=== PATIENT | male | born 1995 | race Caucasian/White ===

== ENCOUNTER → 2020-08-16 10:48 | Outpatient (CLI) | payer OTHER, MEDICAID, SELFPAY ==
--- NOTE | 2020-08-16 | DI.RAD.S_ITS ---
PROCEDURE: XR CERVICAL SPINE 4V OR 5V INDICATIONS: Cervicalgia/Pain in thoracic spine TECHNIQUE: 5 views of the cervical spine were acquired. COMPARISON: None. FINDINGS: Bones: No fractures or dislocations to the T1 level. No suspicious bony lesions. Oblique views demonstrate no significant neural foraminal narrowing. Soft tissues: Prevertebral soft tissues are normal in thickness. IMPRESSION: Loss of lordosis; otherwise normal C-spine. Dictated by: Mehran Villa [facility] Interpreted: Asha Rodriguez MD on 08/16/2020 at 11:15 Approved by: Asha Rodriguez M.D. on 08/16/2020 at 11:57
--- NOTE | 2020-08-16 | DI.RAD.S_ITS ---
PROCEDURE: XR THORACIC SPINE 2V INDICATIONS: Cervicalgia/Pain in thoracic spine TECHNIQUE: 3 views of the thoracic spine were acquired. COMPARISON: [facility], CR, XR CERVICAL SPINE 4V OR 5V, 08/16/2020, 10:53. FINDINGS: Bones: No fractures or dislocations. No suspicious bony lesions. 12 pairs of ribs are noted, and appear intact where visualized. Soft tissues: No paravertebral stripe thickening. IMPRESSION: Normal T-spine. Dictated by: Mehran Villa [facility] Interpreted: Asha Rodriguez MD on 08/16/2020 at 11:16 Approved by: Asha Rodriguez M.D. on 08/16/2020 at 11:57
== END ==
PROVIDERS: PCP Physician Assistant; Referring Provider Physician Assistant; Visit Provider Physician Assistant
DX: M54.2 Cervicalgia (principal); M54.6 Pain in thoracic spine
CPT/HCPCS: 72050; 72070

== ENCOUNTER 2020-08-29 13:11 | Emergency (ER) | payer OTHER, MEDICAID, SELFPAY ==
[2020-08-29 13:39] VITALS: BP 136/76; PULSE 98; RESP 22; TEMP 36.9; O2SAT 98
[2020-08-29 14:13] LABS: Add Manual Diff / Slide Review NO; Basophils Absolute Auto 100 /uL (0-100); Basophils Percent Auto 0.6 % (0-2); Eosinophils Absolute Auto 100 /uL (0-450); Eosinophils Percent Auto 1.6 % (2-4); Hematocrit 48.8 % (41-53); Hemoglobin 16.5 g/dL (13.5-17.5); Lymphocytes Absolute Auto 1700 /uL (1100-4500); Lymphocytes Percent Auto 21.3 % (25-40); Mean Corpuscular HGB Conc 33.8 % (30-36); Mean Corpuscular Hemoglobin 29.8 PG (26-34); Mean Corpuscular Volume 88.2 fL (80-100); Monocytes Absolute Auto 600 /uL (0-900); Monocytes Percent Auto 7.4 % (3-14); Neutrophils Absolute Auto 5700 /uL (1500-7000); Neutrophils Percent Auto 69.1 % (50-75); Platelet Count 334 X10^3/uL (150-400); Red Blood Cell Count 5.54 X10^6/uL (4.5-5.9); Red Cell Distribution Width 13.3 % (11.6-14.8); White Blood Cell Count 8.2 X10^3/uL (4.5-11.0)
[2020-08-29 14:28] LABS: Acetaminophen < 10 ug/mL (10-30); Alanine Aminotransferase 27 IU/L (<50); Albumin Globulin Ratio 1.5 (1.0-2.8); Alkaline Phosphatase 87 U/L (38-126); Aspartate Aminotransferase 27 IU/L (17-59); BUN Creatinine Ratio 18.6 (6-22); Bilirubin Total 0.5 mg/dL (0.2-1.3); Blood Urea Nitrogen 16 mg/dL (9-20); Calcium 9.5 mg/dL (8.4-10.2); Carbon Dioxide 26 mmol/L (22-32); Chloride 102 mmol/L (98-107); Estimated Glomerular Filt Rate > 60.0 mL/min (>60); Ethanol (ETOH) < 10 mg/dL; Globulin 3.3 g/dL (1.7-4.1); Glucose 108 mg/dL (70-100); HEMOLYSIS < 15 (0-50); Potassium 3.9 mmol/L (3.4-5.1); Salicylate < 1.0 mg/dL (<20); Sodium 139 mmol/L (137-145); Total Protein 8.3 g/dL (6.3-8.2)
--- NOTE | 2020-08-29 14:33 | ED_ITS ---
HPI - Psych <Jennifer Roberson DO - Last Filed: 08/30/20 16:08> General Chief Complaint: Psychiatric Symptoms Stated Complaint: Mental Crisis Time Seen by Provider: 08/29/20 13:49 Source: patient Mode of arrival: Ambulatory Limitations: no limitations History of Present Illness HPI Narrative: Patient is a 24-year-old male who presents with suicidal ideations and depression. He is expressing significant hopelessness. He was seen by a primary care provider and started on antidepressant 2 weeks ago but he feels things are just getting worse progressively fast. He has a plan of suicide but is not willing to share with me. He denies any drug or alcohol use. 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 He was living in [place] but now is living at home with his parents. He had a recent break-up with a girlfriend. He has a stat and mu ltiple other stressors. He is not asking to go to a mental health hospital the is asking for help. He says that he has called hotline used the text messaging services and for out of the 5 times the response to get the person is going off shift and requests he wait for the new person. He is frustrated with the system. MD complaint: suicidal ideation and feels depressed Related Data Allergies Allergy/AdvReac Type Severity Reaction Status Date / Time No Known Drug Allergies Allergy Verified 08/29/20 13:44 Review of Systems <Jennifer Roberson DO - Last Filed: 08/30/20 16:08> Review of Systems Narrative: GENERAL: Denies chills, fatigue, malaise, fever, sweats, travel HEENT: Denies sinus pain, ear pain, sore throat, difficulty swallowing, neck pain RESPIRATORY: Denies dyspnea, cough, wheezing, hemoptysis, sputum. CARDIOVASCULAR: Denies chest pain, palpitations, orthopnea, edema GASTROINTESTINAL: Denies nausea, vomiting, abdominal pain, diarrhea, constipation, melena. : Denies dysuria, frequency, incontinence, hematuria, urinary retention, flank pain. MUSCULOSKELETAL: Denies weakness, joint pain, or bony pain SKIN: No rash, no erythema, no pruritus NEUROLOGIC: Denies weakness, dizziness, headache, numbness, change in speech, confusion PSYCHIATRIC: See HPI 12 point review of systems is negative except for those stated above and HPI Patient History <Jennifer Roberson DO - Last Filed: 08/30/20 16:08> Medical History Depression Social History Smoking Status: Never smoker Smoking Status: Never smoker alcohol intake frequency: holidays/special occasions only Substance Use Type: does not use Exam <Jennifer Roberson DO - Last Filed: 08/30/20 16:08> Initial Vital Signs Initial Vital Signs: Vital Signs Temperature 98.4 F 08/29/20 13:39 Pulse Rate 98 H 08/29/20 13:39 Respiratory Rate 22 08/29/20 13:39 Blood Pressure 136/76 08/29/20 13:39 Pulse Oximetry 98 08/29/20 13:39 GENERAL: Alert young 24-year-old male and in no acute distress. HEENT: Head atraumatic,EOMI, pupils reactive, face symmetric, moist mucous membranes CARDIOVASCULAR: Regular rate and rhythm without murmurs, rubs or gallops. RESPIRATORY: Breath sounds equal bilaterally, no wheezes rales or rhonchi. EXTREMITIES: Normal range of motion, no clubbing or edema. Neurovascularly intact NEUROLOGICAL: Alert and oriented x4.Normal gait and speech. Cranial nerves II through XII grossly intact. SKIN: Warm, dry, no laceration, no petechiae, no rashes or lesions. Psych Appearance: grossly normal Mental Status: mental status grossly normal Speech and Movement: speech clear Attitude: cooperative Thought Process: normal Thought Content: normal <Joe Pathak DO - Last Filed: 08/30/20 04:38> Initial Vital Signs Initial Vital Signs: Vital Signs Temperature 98.4 F 08/29/20 13:39 Pulse Rate 98 H 08/29/20 13:39 Respiratory Rate 22 08/29/20 13:39 Blood Pressure 136/76 08/29/20 13:39 Pulse Oximetry 98 08/29/20 13:39 Course <Jennifer Roberson DO - Last Filed: 08/30/20 16:08> Orders Ordered: ED Orders 08/29/20 21:20 COVID19 -Nasal swab/Pre-Proc Stat Vital Signs Vital signs: Vital Signs - 8 hr 08/29/20 21:51 Pulse Rate 51 L Respiratory Rate 16 Blood Pressure 143/83 H Pulse Oximetry 96 <Joe Pathak, DO - Last Filed: 08/30/20 04:38> Course Course Narrative: Patient received in sign-out from Dr. Roberson. I performed an independent history and physical exam. The DCR has performed a detailed interview and feels the patient is appropriate for discharge, please see their note for details. The patient understands and agrees with the plan. He is able to contract for safety and has had return precautions given and questions answered to his apparent satisfaction Orders Ordered: ED Orders 08/29/20 21:20 COVID19 -Nasal swab/Pre-Proc Stat Vital Signs Vital signs: Vital Signs - 8 hr 08/29/20 21:51 Pulse Rate 51 L Respiratory Rate 16 Blood Pressure 143/83 H Pulse Oximetry 96 MDM - Psych <Jennifer Roberson, - Last Filed: 08/30/20 16:08> Lab Data Result diagrams: 08/29/20 14:03 08/29/20 14:03 Labs: Lab Results 08/29/20 08/29/20 08/29/20 Range/Units 14:03 14:03 14:03 WBC 8.2 (4.5-11.0) X10^3/uL RBC 5.54 (4.5-5.9) X10^6/uL Hgb 16.5 (13.5-17.5) g/dL Hct 48.8 (41-53) % MCV 88.2 (80-100) fL MCH 29.8 (26-34) PG MCHC 33.8 (30-36) % RDW 13.3 (11.6-14.8) % Plt Count 334 (150-400) X10^3/uL Neut % (Auto) 69.1 (50-75) % Lymph % (Auto) 21.3 L (25-40) % Sharkey % (Auto) 7.4 (3-14) % Eos % (Auto) 1.6 L (2-4) % Baso % (Auto) 0.6 (0-2) % Neut # (Auto) 5700 (9911-3499) /uL Lymph # (Auto) 1700 (3895-0701) /uL Sharkey # (Auto) 600 (0-900) /uL Eos # (Auto) 100 (0-450) /uL Baso # (Auto) 100 (0-100) /uL Sodium 139 (137-145) mmol/L Potassium 3.9 (3.4-5.1) mmol/L Chloride 102 (98-107) mmol/L Carbon Dioxide 26 (22-32) mmol/L BUN 16 (9-20) mg/dL Creatinine 0.86 (0.66-1.25) mg/dL Estimated GFR > 60.0 (>60) mL/min BUN/Creatinine Ratio 18.6 (6-22) Glucose 108 H (70-100) mg/dL Calcium 9.5 (8.4-10.2) mg/dL Total Bilirubin 0.5 (0.2-1.3) mg/dL AST 27 (17-59) IU/L ALT 27 (<50) IU/L Alkaline Phosphatase 87 (38-126) U/L Total Protein 8.3 H (6.3-8.2) g/dL Albumin 5.0 (3.5-5.0) g/dL Globulin 3.3 (1.7-4.1) g/dL Albumin/Globulin Ratio 1.5 (1.0-2.8) TSH 1.42 (0.47-4.68) uIU/mL Free T4 1.11 (0.78-2.19) ng/dL Salicylates < 1.0 (<20) mg/dL U Opiates 300ng/mL cut (Negative) Ur Oxycodone Screen (Negative) Urine Methadone Screen (Negative) Acetaminophen < 10 L (10-30) ug/mL Ur Barbiturates Screen (Negative) U Tricyclic Antidepress (Negative) Ur Phencyclidine Scrn (Negative) Ur Amphetamines Screen (Negative) U Methamphetamines Scrn (Negative) Ur MDMA Scrn (Ecstasy) (Negative) U Benzodiazepines Scrn (Negative) Urine Cocaine Screen (Negative) U Marijuana (THC) Screen (Negative) Ethyl Alcohol < 10 ( - 10) mg/dL SARS-CoV-2 (PCR) (Negative) 08/29/20 08/29/20 Range/Units 14:42 21:20 WBC (4.5-11.0) X10^3/uL RBC (4.5-5.9) X10^6/uL Hgb (13.5-17.5) g/dL Hct (41-53) % MCV (80-100) fL MCH (26-34) PG MCHC (30-36) % RDW (11.6-14.8) % Plt Count (150-400) X10^3/uL Neut % (Auto) (50-75) % Lymph % (Auto) (25-40) % Sharkey % (Auto) (3-14) % Eos % (Auto) (2-4) % Baso % (Auto) (0-2) % Neut # (Auto) (8015-4426) /uL Lymph # (Auto) (1050-4070) /uL Sharkey # (Auto) (0-900) /uL Eos # (Auto) (0-450) /uL Baso # (Auto) (0-100) /uL Sodium (137-145) mmol/L Potassium (3.4-5.1) mmol/L Chloride (98-107) mmol/L Carbon Dioxide (22-32) mmol/L BUN (9-20) mg/dL Creatinine (0.66-1.25) mg/dL Estimated GFR (>60) mL/min BUN/Creatinine Ratio (6-22) Glucose (70-100) mg/dL Calcium (8.4-10.2) mg/dL Total Bilirubin (0.2-1.3) mg/dL AST (17-59) IU/L ALT (<50) IU/L Alkaline Phosphatase (38-126) U/L Total Protein (6.3-8.2) g/dL Albumin (3.5-5.0) g/dL Globulin (1.7-4.1) g/dL Albumin/Globulin Ratio (1.0-2.8) TSH (0.47-4.68) uIU/mL Free T4 (0.78-2.19) ng/dL Salicylates (<20) mg/dL U Opiates 300ng/mL cut Negative (Negative) Ur Oxycodone Screen Negative (Negative) Urine Methadone Screen Negative (Negative) Acetaminophen (10-30) ug/mL Ur Barbiturates Screen Negative (Negative) U Tricyclic Antidepress Negative (Negative) Ur Phencyclidine Scrn Negative (Negative) Ur Amphetamines Screen Negative (Negative) U Methamphetamines Scrn Negative (Negative) Ur MDMA Scrn (Ecstasy) Negative (Negative) U Benzodiazepines Scrn Negative (Negative) Urine Cocaine Screen Negative (Negative) U Marijuana (THC) Screen Negative (Negative) Ethyl Alcohol ( - 10) mg/dL SARS-CoV-2 (PCR) Negative (Negative) Urine Dip Bedside Urine Glucose Negative Bedside Urine Bilirubin - Negative Bedside Urine Ketone - Negative Urine Specific [place] 1.030 Bedside Urine Occult Blood - Negative Bedside Urine pH 6.0 Bedside Urine Protein - Negative Bedside Urine Urobilinogen - Negative Bedside Urine Nitrite - Negative Bedside Urine Leukocytes - Negative Esterase MDM Narrative Medical decision making narrative: The patient gave director of social media marketing more information on his plan. He would is suck gas out of an N55. At this time social work thinks DCR needs to be involved. Patient signed out to Dr. Pathak awaiting DCR. <Joe Pathak, - Last Filed: 08/30/20 04:38> Lab Data Labs: Lab Results 08/29/20 08/29/20 08/29/20 Range/Units 14:03 14:03 14:03 WBC 8.2 (4.5-11.0) X10^3/uL RBC 5.54 (4.5-5.9) X10^6/uL Hgb 16.5 (13.5-17.5) g/dL Hct 48.8 (41-53) % MCV 88.2 (80-100) fL MCH 29.8 (26-34) PG MCHC 33.8 (30-36) % RDW 13.3 (11.6-14.8) % Plt Count 334 (150-400) X10^3/uL Neut % (Auto) 69.1 (50-75) % Lymph % (Auto) 21.3 L (25-40) % Sharkey % (Auto) 7.4 (3-14) % Eos % (Auto) 1.6 L (2-4) % Baso % (Auto) 0.6 (0-2) % Neut # (Auto) 5700 (9930-1900) /uL Lymph # (Auto) 1700 (4130-3927) /uL Sharkey # (Auto) 600 (0-900) /uL Eos # (Auto) 100 (0-450) /uL Baso # (Auto) 100 (0-100) /uL Sodium 139 (137-145) mmol/L Potassium 3.9 (3.4-5.1) mmol/L Chloride 102 (98-107) mmol/L Carbon Dioxide 26 (22-32) mmol/L BUN 16 (9-20) mg/dL Creatinine 0.86 (0.66-1.25) mg/dL Estimated GFR > 60.0 (>60) mL/min BUN/Creatinine Ratio 18.6 (6-22) Glucose 108 H (70-100) mg/dL Calcium 9.5 (8.4-10.2) mg/dL Total Bilirubin 0.5 (0.2-1.3) mg/dL AST 27 (17-59) IU/L ALT 27 (<50) IU/L Alkaline Phosphatase 87 (38-126) U/L Total Protein 8.3 H (6.3-8.2) g/dL Albumin 5.0 (3.5-5.0) g/dL Globulin 3.3 (1.7-4.1) g/dL Albumin/Globulin Ratio 1.5 (1.0-2.8) TSH 1.42 (0.47-4.68) uIU/mL Free T4 1.11 (0.78-2.19) ng/dL Salicylates < 1.0 (<20) mg/dL U Opiates 300ng/mL cut (Negative) Ur Oxycodone Screen (Negative) Urine Methadone Screen (Negative) Acetaminophen < 10 L (10-30) ug/mL Ur Barbiturates Screen (Negative) U Tricyclic Antidepress (Negative) Ur Phencyclidine Scrn (Negative) Ur Amphetamines Screen (Negative) U Methamphetamines Scrn (Negative) Ur MDMA Scrn (Ecstasy) (Negative) U Benzodiazepines Scrn (Negative) Urine Cocaine Screen (Negative) U Marijuana (THC) Screen (Negative) Ethyl Alcohol < 10 ( - 10) mg/dL SARS-CoV-2 (PCR) (Negative) 08/29/20 08/29/20 Range/Units 14:42 21:20 WBC (4.5-11.0) X10^3/uL RBC (4.5-5.9) X10^6/uL Hgb (13.5-17.5) g/dL Hct (41-53) % MCV (80-100) fL MCH (26-34) PG MCHC (30-36) % RDW (11.6-14.8) % Plt Count (150-400) X10^3/uL Neut % (Auto) (50-75) % Lymph % (Auto) (25-40) % Sharkey % (Auto) (3-14) % Eos % (Auto) (2-4) % Baso % (Auto) (0-2) % Neut # (Auto) (7910-2987) /uL Lymph # (Auto) (6102-6665) /uL Sharkey # (Auto) (0-900) /uL Eos # (Auto) (0-450) /uL Baso # (Auto) (0-100) /uL Sodium (137-145) mmol/L Potassium (3.4-5.1) mmol/L Chloride (98-107) mmol/L Carbon Dioxide (22-32) mmol/L BUN (9-20) mg/dL Creatinine (0.66-1.25) mg/dL Estimated GFR (>60) mL/min BUN/Creatinine Ratio (6-22) Glucose (70-100) mg/dL Calcium (8.4-10.2) mg/dL Total Bilirubin (0.2-1.3) mg/dL AST (17-59) IU/L ALT (<50) IU/L Alkaline Phosphatase (38-126) U/L Total Protein (6.3-8.2) g/dL Albumin (3.5-5.0) g/dL Globulin (1.7-4.1) g/dL Albumin/Globulin Ratio (1.0-2.8) TSH (0.47-4.68) uIU/mL Free T4 (0.78-2.19) ng/dL Salicylates (<20) mg/dL U Opiates 300ng/mL cut Negative (Negative) Ur Oxycodone Screen Negative (Negative) Urine Methadone Screen Negative (Negative) Acetaminophen (10-30) ug/mL Ur Barbiturates Screen Negative (Negative) U Tricyclic Antidepress Negative (Negative) Ur Phencyclidine Scrn Negative (Negative) Ur Amphetamines Screen Negative (Negative) U Methamphetamines Scrn Negative (Negative) Ur MDMA Scrn (Ecstasy) Negative (Negative) U Benzodiazepines Scrn Negative (Negative) Urine Cocaine Screen Negative (Negative) U Marijuana (THC) Screen Negative (Negative) Ethyl Alcohol ( - 10) mg/dL SARS-CoV-2 (PCR) Negative (Negative) Urine Dip Bedside Urine Glucose Negative Bedside Urine Bilirubin - Negative Bedside Urine Ketone - Negative Urine Specific [place] 1.030 Bedside Urine Occult Blood - Negative Bedside Urine pH 6.0 Bedside Urine Protein - Negative Bedside Urine Urobilinogen - Negative Bedside Urine Nitrite - Negative Bedside Urine Leukocytes - Negative Esterase Discharge Plan Departure Patient Disposition: Home Clinical Impression: Depression Qualifiers: Depression Type: major depressive disorder Major depression recurrence: single episode Active/Remission status: currently active Major depression episode severity: moderate Qualified Code(s): F32.1 - Major depressive disorder, single episode, moderate Instructions: DI for Suicidal Ideation-Adult Activity Restrictions/Additional Instructions: *You have been diagnosed with [suicidal ideation. Able to contract for safety] *What to do: *Follow up with your primary care provider in 2-3 days, call for an appointment. Let them know you were seen in the Emergency Department and that we ask that you be seen in follow up *Return to ER if you should have any new, worsening or concerning symptoms *If you feel that you are entering into mental health crisis you have multiple options 1. Return to the ER immediately 2. Call the Crisis Line at [phone] 3. Send an anonymous text by sending the word Hello to [phone] 4. Navigate your web browser to [employer] to engage in anonymous chat with a mental health worker Referrals: [facility] [Outside] Danelle Montenegro PA-C [Primary Care Provider] -
[2020-08-29 14:52] LABS: Ur Creatinine Normal (Normal); Ur Specific Gravity Normal (Normal); Urine pH Normal (Normal)
[2020-08-29 14:53] LABS: UR Morphine/Opiate cutoff 300 Negative (Negative); Urine Amphetamines Negative (Negative); Urine Barbiturates Negative (Negative); Urine Benzodiazepines Negative (Negative); Urine Cocaine Negative (Negative); Urine MDMA Negative (Negative); Urine Methadone Negative (Negative); Urine Methamphetamines Negative (Negative); Urine Oxycodone Negative (Negative); Urine Phencyclidine Negative (Negative); Urine Tetrahydrocannabinol Negative (Negative); Urine Tricyclic Antidepressant Negative (Negative)
[2020-08-29 14:53] LABS: Free T4, Direct Thyroxine 1.11 ng/dL (0.78-2.19)
[2020-08-29 15:07] LABS: Thyroid Stimulating Hormone 1.42 uIU/mL (0.47-4.68)
--- NOTE | 2020-08-29 18:13 | CM.SWNOTE ---
COMMUNITY OUTREACH COORDINATOR note Following assessment, COMMUNITY OUTREACH COORDINATOR obtains signature on attestation form and faxes form to [facility]. COMMUNITY OUTREACH COORDINATOR then calls [facility] and requests DCR dispatch. [facility] informs COMMUNITY OUTREACH COORDINATOR that DCR Kayy will be contacted. This call occurred at 1814 08/29. BANG Thomas
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
[2020-08-29 19:00] VITALS: BP 128/76; PULSE 84; RESP 20; TEMP 36.6; O2SAT 97
--- NOTE | 2020-08-29 20:00 | PC.NURSE ---
Patients door is partially closed but He is within sight. He is on a ipad video conference call with a doctor.
[2020-08-29 21:37] LABS: COVID19 -Nasal RAPID Negative (Negative)
[2020-08-29 21:51] VITALS: BP 143/83; PULSE 51; RESP 16; O2SAT 96
== END 2020-08-29 21:55 | disposition home or self-care (01) ==
PROVIDERS: Emergency Medicine; Emergency Provider Emergency Medicine; PCP Physician Assistant
DX: R45.851 Suicidal ideations (principal); F32.1 Major depressive disorder, single episode, moderate; Z20.822 Contact with and (suspected) exposure to COVID-19
CPT/HCPCS: 36415; 80053; 80305; 80320; 80329; 81003; 84439; 84443; 85025; 87635; 99284; C9803; G0480

== ENCOUNTER 2022-05-03 17:08 | Emergency (ER) | payer OTHER, MEDICAID, SELFPAY ==
[2022-05-03 17:14] VITALS: BP 142/98; PULSE 72; RESP 16; TEMP 36.9; O2SAT 99; BMI 25.4
--- NOTE | 2022-05-03 17:42 | ED.HA ---
HPI - Headache General Chief Complaint: Headache Stated Complaint: severe pain left side of face,dizzy,numbness Time Seen by Provider: 05/03/22 17:26 Source: patient Mode of arrival: Ambulatory History of Present Illness HPI Narrative: Patient is a 26-year-old otherwise healthy male who is here for evaluation of approximately 5 days of increasing pain and swelling to the right side of his neck and behind his right ear and up the back his head. He denies any problems swallowing or breathing. No ear pain. No sore throat. No dental pain. Does have a history of sinusitis but is not currently on any treatment for this. No skin rashes. Has been taking ibuprofen without any improvement. No fevers. No pain with opening and closing his mouth. Related Data Previous Rx's Medication Instructions Recorded amoxicillin 875 mg-potassium 1 tab PO Q12H 10 days #20 tabs 05/03/22 clavulanate 125 mg tablet Allergies Allergy/AdvReac Type Severity Reaction Status Date / Time No Known Drug Allergies Allergy Verified 08/29/20 13:44 Review of Systems Constitutional Constitutional: Reports system reviewed and no additional complaints, except as documented ENT Ears, Nose, Mouth, and Throat: Reports system reviewed and no additional complaints, except as documented Respiratory Respiratory: Reports system reviewed and no additional complaints, except as documented Integumentary/Breasts Skin/Breast: Reports system reviewed and no additional complaints, except as documented Neurologic Neurologic: Reports system reviewed and no additional complaints, except as documented Hematologic/Lymphatic On Anticoagulants: No Patient History Medical History Depression Social History Smoking Status: Never smoker Smoking Status: Never smoker alcohol intake frequency: holidays/special occasions only Substance Use Type: does not use Exam Initial Vital Signs Initial Vital Signs: Vital Signs Temperature 98.4 F 05/03/22 17:14 Pulse Rate 72 05/03/22 17:14 Respiratory Rate 16 05/03/22 17:14 Blood Pressure 142/98 H 05/03/22 17:14 Pulse Oximetry 99 05/03/22 17:14 Oxygen Delivery Method 05/03/22 17:14 Const General: cooperative, comfortable and No ill appearing HENMT Head: normal to inspection Ears: TM's normal bilaterally, EAC's normal and mastoids normal Nose: external nose normal Teeth and gingiva: dentition normal Throat: posterior oropharynx normal Neck Thyroid: thyroid normal Lymphatic: lymphadenopathy Resp Effort & Inspection: normal respiratory effort Auscultation: clear to auscultation bilaterally Skin General: no rashes or lesions noted Neuro General: patient alert, patient awake and moves all extremities Extrem General: normal to inspection and capillary refill normal Course Orders Ordered: Discontinued Medications Tramadol HCl (Tramadol 50 Mg Prepack) 1 bottle MISC SEEINSTR ONE Stop: 05/03/22 17:57 Vital Signs Vital signs: Vital Signs - 8 hr 05/03/22 17:14 Temperature 98.4 F Pulse Rate 72 Respiratory Rate 16 Blood Pressure 142/98 H Pulse Oximetry 99 Oxygen Delivery Method Room Air MDM - Headache MDM Narrative Medical decision making narrative: Patient does have right-sided posterior an anterior cervical lymphadenopathy and also occipital and pre and posterior auricular lymphadenopathy. There is no skin changes over the area that would make me concern for zoster. He is no other obvious infection but does have fairly significant right-sided lymphadenopathy. He has no testicular pain. No other skin rashes. Had a long discussion about lymphadenopathy and the lack of a definitive diagnosis. The plate OB is to give him a prescription for Augmentin which would cover most upper respiratory/head and neck infections however he is going to hold on this and if his symptoms worsen or do not improve over the next 24-48 hours he will start taking the antibiotic. He was given strict return precautions. Will hold on any radiologic studies for now. He expressed understanding and agreement. Discharge Plan Departure Patient Disposition: Home Clinical Impression: Lymphadenopathy Instructions: DI for Lymphadenopathy Activity Restrictions/Additional Instructions: You can continue to take Tylenol/ibuprofen for any discomfort. Recommend that you hold on the prescription for the antibiotics and only fill them if your symptoms do not improve or worsen over the next 24-36 hours. Return to the emergency department for any new or worsening symptoms. Prescriptions: New amoxicillin-pot clavulanate 875-125 mg tablet 1 tab PO Q12H 10 Days Qty: 20 0RF Referrals: Danelle Montenegro PA-C [Primary Care Provider] -
[2022-05-03 18:12] VITALS: BP 131/75; PULSE 69; O2SAT 97
[2022-05-03] MEDS: TRAMADOL 50 MG PREPACK 1 BOTTLE MISC (18:16)
== END 2022-05-03 18:18 | disposition home or self-care (01) ==
PROVIDERS: Emergency Provider Emergency Medicine; PCP Physician Assistant
DX: R59.1 Generalized enlarged lymph nodes (principal)
CPT/HCPCS: 99281

== ENCOUNTER 2024-08-28 18:55 | Emergency (ER) | payer OTHER, SELFPAY ==
[2024-08-28 19:07] VITALS: BP 148/80; PULSE 69; RESP 20; TEMP 36.6; O2SAT 97; BMI 25.5
[2024-08-28] MEDS: ACETAMINOPHEN 325 MG TABLET 975 MG PO (23:07)
--- NOTE | 2024-08-28 23:22 | DI.CT.S_ITS ---
PROCEDURE: CT HEAD/BRAIN WO CON INDICATIONS: occipital pain and visual change TECHNIQUE: Noncontrast 4.5 mm thick angled axial sections acquired from the foramen magnum to the vertex, with coronal and sagittal reformats. For radiation dose reduction, the following was used: automated exposure control, adjustment of mA and/or kV according to patient size. COMPARISON: None. FINDINGS: Image quality: Diagnostic. CSF spaces: Basal cisterns are patent. No extra-axial fluid collections. Ventricles are normal in size and shape. Brain: No midline shift. No intracranial masses or hemorrhage. Delgadillo-white matter interface is normal. Skull and face: Calvarium and visualized facial bones are intact, without suspicious lesions. No radiodense foreign body visualized in the globes. Sinuses: Visualized sinuses and mastoids are clear. IMPRESSION: No acute intracranial pathology. No radiodense foreign body visualized in the globes as clinically queried. Approved by: Yolanda Royal M.D.,Ph.D. on 08/29/2024 at 0:36
--- NOTE | 2024-08-28 23:23 | ED_ITS ---
HPI - Eye Problem General Chief complaint: Eye Problems Stated complaint: sent by [facility], neck and rt eye px Time Seen by Provider: 08/28/24 23:07 Source: patient Mode of arrival: Ambulatory History of Present Illness HPI Narrative: this is a 28-year-old male previously healthy referred from urgent care with a tender left occipital lesion and visual changes. Patient reports that about 5 days ago he had the onset of a dark spot in his vision in his right eye only. The eye is not painful, he does not have flashes or floaters does not wear contact lenses or corrective lenses and has been persistent since its onset. A day or 2 after that he noticed a tender spot on the back of his head. Thinks that he might have been bitten by a spider or something but does not recall any specific event. He has not had fevers says that he feels little numbness and tingling in his left arm with lifting. No recent chiropractic manipulation, no head injuries no fevers. Related Data Previous Rx's Medication Instructions Recorded cephalexin 500 mg capsule 500 mg PO QID #28 caps 08/29/24 Allergies Allergy/AdvReac Type Severity Reaction Status Date / Time No Known Drug Allergies Allergy Verified 08/28/24 18:15 Patient History Medical History Depression Social History Smoking Status: Never smoker Smoking Status: Never smoker alcohol intake frequency: holidays/special occasions only Exam Initial Vital Signs Initial Vital Signs: Vital Signs Temperature 98 F 08/28/24 19:07 Pulse Rate 69 08/28/24 19:07 Respiratory Rate 20 08/28/24 19:07 Blood Pressure 148/80 H 08/28/24 19:07 Pulse Oximetry 97 08/28/24 19:07 Oxygen Delivery Method Room Air 08/28/24 19:07 Const Other: Well-appearing HENMT HENMT Other: normocephalic and atraumatic. There is a tender lump in the left occiput not warm no visible erythema no other adenopathy appreciated. Eyes Other: Pupils are equal round and reactive extraocular movements are intact. Visual acuities 20/25 bilaterally Neck Other: no cervical adenopathy or carotid bru Resp Other: normal effort Cardio Other: regular rhythm rate no murmur rub or gallop Neuro Other: cranial nerves are intact speech is fluent no focal numbness or weakness Course Orders Ordered: ED Orders 08/28/24 23:22 CT head/brain wo con Stat 08/28/24 23:38 CBC Auto Diff [Complete Blood Count AUTO DIFF] Stat CMP [Comprehensive Metabolic Panel] Stat Discontinued Medications Acetaminophen (Acetaminophen 325 Mg Tablet) 975 mg PO NOW ONE Stop: 08/28/24 23:04 Last Admin: 08/28/24 23:07 Dose: 975 mg Documented By: Cephalexin HCl (Cephalexin 250 Mg Capsule) 500 mg PO NOW ONE Stop: 08/29/24 01:05 Last Admin: 08/29/24 01:08 Dose: 500 mg Documented By: Vital Signs Vital signs: Vital Signs - 8 hr 08/28/24 23:41 08/28/24 23:42 08/28/24 23:42 Pulse Rate 75 75 Blood Pressure 145/80 H Pulse Oximetry 100 100 Oxygen Delivery Method Room Air 08/29/24 00:00 08/29/24 00:00 08/29/24 00:30 Pulse Rate 68 Blood Pressure 131/90 122/75 Pulse Oximetry 100 Oxygen Delivery Method 08/29/24 00:30 08/29/24 01:00 Pulse Rate 59 L 64 Blood Pressure Pulse Oximetry 99 98 Oxygen Delivery Method MDM - Eye Problem Lab Data Lab results narrative: CBC with diff is unremarkable CMP is unremarkable 08/28/24 23:38 08/28/24 23:38 Labs: Lab Results 08/28/24 Range/Units 23:38 WBC 9.0 (4.5-11.0) X10^3/uL RBC 5.20 (4.5-5.9) X10^6/uL Hgb 15.7 (13.5-17.5) g/dL Hct 45.9 (41-53) % MCV 88.4 (80-100) fL MCH 30.1 (26-34) PG MCHC 34.1 (30-36) % RDW 13.2 (11.6-14.8) % Plt Count 345 (150-400) X10^3/uL Neut % (Auto) 56.1 (50-75) % Lymph % (Auto) 34.4 (25-40) % [place] % (Auto) 6.8 (3-14) % Eos % (Auto) 2.1 (2-4) % Baso % (Auto) 0.6 (0-2) % Neut # (Auto) 5000 (2418-4620) /uL Lymph # (Auto) 3100 (6508-2855) /uL [place] # (Auto) 600 (0-900) /uL Eos # (Auto) 200 (0-450) /uL Baso # (Auto) 100 (0-100) /uL Sodium 140 (137-145) mmol/L Potassium 3.6 (3.4-5.1) mmol/L Chloride 102 (98-107) mmol/L Carbon Dioxide 27 (22-32) mmol/L BUN 14 (9-20) mg/dL Creatinine 0.85 (0.66-1.25) mg/dL Estimated GFR > 60 (>60) mL/min BUN/Creatinine Ratio 16.5 (6-22) Glucose 108 H (70-100) mg/dL Calcium 9.6 (8.4-10.2) mg/dL Total Bilirubin 0.5 (0.2-1.3) mg/dL AST 27 (17-59) IU/L ALT 36 (<50) IU/L Alkaline Phosphatase 82 (38-126) U/L Total Protein 8.2 (6.3-8.2) g/dL Albumin 4.8 (3.5-5.0) g/dL Globulin 3.4 (1.7-4.1) g/dL Albumin/Globulin Ratio 1.4 (1.0-2.8) Imaging Data CT scan - head: My Impression: independent review of CT head, no acute findings, additionally, mastoids are clear Radiologist's Impression: radiology report was reviewed, no acute process MDM Narrative Medical decision making narrative: 28-year-old male presenting with 2 issues. The 1st of these is a visual change with a spot in the center of the vision of his right eye. This has been present for 4-5 days and is unchanged. Feel acuity is grossly intact without visual field cuts. I considered the possibility of stroke, MRI is not available when the patient was seen and CT is negative for stroke greater than 3 days after the onset of symptoms. Also has no other neurologic findings I think stroke is unlikely. I considered but do not suspect carotid or vertebral artery dissection. He also has a tender painful node in his upper neck / occipital region. He does not appear to be systemically ill, I considered but do not suspect sepsis he has not have an obvious portal for entry of infection however it is most likely that this is a reactive node, given its acute onset and essentially a solitary node I think it is probably not malignant. I put him on a course of Keflex for this. With respect to his eye issue, he would referred to Ophthalmology for further workup. [employer] forms completed, this does not seem to be related to a specific incident and I am not convinced that is related to his occupation Discharge Plan Departure Patient Disposition: Home Clinical Impression: Change in vision, Lymphadenopathy of head and neck Activity Restrictions/Additional Instructions: examination today is reassuring. I think it is safe to follow up with Ophthalmology in the coming week. [facility] office on Saturday morning and let them know you are in the emergency department. Additionally, use the provided information to set up a follow up appointment with the primary care provider. I have sent a prescription for Keflex to treat a possible infection involving the lymph nodes in the Back of your head. If you are have any further visual changes fevers severe headache vomiting or other acute symptoms return to the emergency department. You can use Tylenol and or ibuprofen at usual [id number] doses as needed for pain. Prescriptions: New cephalexin 500 mg capsule 500 mg PO QID Qty: 28 0RF Referrals: Baeta Kingston MD [Physician] - Miscellaneous,MD Veronique [Primary Care Provider] - Stand Alone Forms: Patient Portal/API/Survey
[2024-08-28 23:41] VITALS: PULSE 75; O2SAT 100
[2024-08-28 23:42] VITALS: BP 145/80; PULSE 75; O2SAT 100
[2024-08-28 23:50] LABS: Add Manual Diff / Slide Review NO; Basophils Absolute Auto 100 /uL (0-100); Basophils Percent Auto 0.6 % (0-2); Eosinophils Absolute Auto 200 /uL (0-450); Eosinophils Percent Auto 2.1 % (2-4); Hematocrit 45.9 % (41-53); Hemoglobin 15.7 g/dL (13.5-17.5); Lymphocytes Absolute Auto 3100 /uL (1100-4500); Lymphocytes Percent Auto 34.4 % (25-40); Mean Corpuscular HGB Conc 34.1 % (30-36); Mean Corpuscular Hemoglobin 30.1 PG (26-34); Mean Corpuscular Volume 88.4 fL (80-100); Monocytes Absolute Auto 600 /uL (0-900); Monocytes Percent Auto 6.8 % (3-14); Neutrophils Absolute Auto 5000 /uL (1500-7000); Neutrophils Percent Auto 56.1 % (50-75); Platelet Count 345 X10^3/uL (150-400); Red Cell Distribution Width 13.2 % (11.6-14.8)
[2024-08-28 23:58] LABS: Alanine Aminotransferase 36 IU/L (<50); Albumin 4.8 g/dL (3.5-5.0); Albumin Globulin Ratio 1.4 (1.0-2.8); Alkaline Phosphatase 82 U/L (38-126); Aspartate Aminotransferase 27 IU/L (17-59); BUN Creatinine Ratio 16.5 (6-22); Bilirubin Total 0.5 mg/dL (0.2-1.3); Blood Urea Nitrogen 14 mg/dL (9-20); Calcium 9.6 mg/dL (8.4-10.2); Carbon Dioxide 27 mmol/L (22-32); Chloride 102 mmol/L (98-107); Estimated Glomerular Filt Rate > 60 mL/min (>60); Globulin 3.4 g/dL (1.7-4.1); Glucose 108 mg/dL (70-100); HEMOLYSIS < 15 (0-50); Potassium 3.6 mmol/L (3.4-5.1); Sodium 140 mmol/L (137-145); Total Protein 8.2 g/dL (6.3-8.2)
[2024-08-29] VITALS: BP 131/90; PULSE 68; O2SAT 100
[2024-08-29 00:30] VITALS: BP 122/75; PULSE 59; O2SAT 99
[2024-08-29 01:00] VITALS: PULSE 64; O2SAT 98
[2024-08-29] MEDS: cephALEXin 250 MG CAPSULE 500 MG PO (01:08)
== END 2024-08-29 01:15 | disposition home or self-care (01) ==
PROVIDERS: Emergency Provider Emergency Medicine
DX: H53.8 Other visual disturbances (principal); R59.0 Localized enlarged lymph nodes; Y99.0 Civilian activity done for income or pay
CPT/HCPCS: 36415; 70450; 80053; 85025; 99283; 99284